=== PATIENT | female | born 1955 | race Caucasian/White ===

== ENCOUNTER 2017-09-14 17:46 | Emergency (ER) | payer MEDICARE, MEDICAID ==
[~2017-09-14] VITALS: Ht 160 cm; Wt 50.0 kg
[~2017-09-14 17:46] MED LIST: ALPR1TAB PO; AMLO5TAB4 PO; ASPI-515 PO; CALC-141 PO; CARVEDILOL PO; CLON0.5T PO; DRON5CAP PO; ELAVIL PO; FENT1PAT77 EXT; FIORICET PO; FLUO40CA9 PO; FURO-93 PO; HYDR12.58 PO; MULT-516 PO; OMEP40CA6 PO; ONDA4TAB10 PO; OXYC-307 PO; OXYC5TAB2 PO; PENT100C2; POTA10TA PO; PRAV10TA2 PO; TIZA2CAP2 PO; ZANAFLEX PO
[2017-09-14 18:15] LABS: BASOPHILS # (AUTO) 0.03 x10^3/uL (0-0.1); BASOPHILS % (AUTO) 0 % (0-1); EOSINOPHILS # (AUTO) 0.04 x10^3/uL (0-0.4); EOSINOPHILS % (AUTO) 1 % (1-7); LYMPHOCYTES # (AUTO) 1.43 x10^3/uL (1-3.4); LYMPHOCYTES % (AUTO) 17 % (22-44); MD NO; MEAN CORPUSCULAR HEMOGLOBIN 28.3 pg (27.0-34.8); MEAN CORPUSCULAR HGB CONC 32.7 g/dL (32.4-35.8); MEAN CORPUSCULAR VOLUME 86.7 fL (80-100); MEAN PLATELET VOLUME 6.1 fL (7.4-10.4); MONOCYTES # (AUTO) 0.84 x10^3/uL (0.2-0.8); MONOCYTES % (AUTO) 10 % (2-9); NEUTROPHILS % (AUTO) 72 % (42-75); PLATELET COUNT 502 x10^3/uL (130-400); RED BLOOD COUNT 3.77 x10^6/uL (3.82-5.3); RED CELL DISTRIBUTION WIDTH 19.8 % (9.6-15.2)
[2017-09-14] MEDS ORDERED: ALBUTEROL SULFATE 2.5 MG/3 ML ONE (18:20)
[2017-09-14 18:27] LABS: ALBUMIN 2.7 g/dL (3.4-5.0); ANION GAP 8 mmol/L (5-15); CALCIUM 8.2 mg/dL (8.5-10.1); CHLORIDE 99 mmol/L (98-107); CREATININE 0.38 mg/dL (0.55-1.02)
[2017-09-14 18:31] LABS: TROPONIN I < 0.015 ng/mL (0.000-0.045)
[2017-09-14] MEDS ORDERED: FURO20TA3 PO (18:38)
[2017-09-14] MEDS ORDERED: SPIR25TA3 PO (18:38)
[2017-09-14] MEDS ORDERED: METH-356 PO (18:38)
[2017-09-14] MEDS ORDERED: POTA20TA14 PO (18:38)
[2017-09-14] MEDS ORDERED: SULF1TAB24 PO (18:41)
[2017-09-14 19:30] VITALS: BP 118/82
== END 2017-09-14 19:52 | disposition home or self-care (01) ==
LOC: ED 19:01
DX: J44.1 Chronic obstructive pulmonary disease with (acute) exacerbation (principal); I25.2 Old myocardial infarction; G89.29 Other chronic pain; Z90.49 Acquired absence of other specified parts of digestive tract; F17.200 Nicotine dependence, unspecified, uncomplicated; Z98.1 Arthrodesis status
CPT/HCPCS: 36415; 71045; 80048; 82040; 83880; 84484; 85025; 93005; 99285

== ENCOUNTER 2018-01-08 18:55 | Emergency (ER) | payer MEDICARE, MEDICAID ==
[~2018-01-08] VITALS: Ht 160 cm; Wt 50.0 kg
[~2018-01-08 18:55] MED LIST changes: +ALPR0.254 PO; +ALPR1TAB6 PO; +BISA10SU65 PR; +FURO20TA3 PO; +IBUP-1484 PO; +METH-356 PO; +ONDA8TAB16 SL; +POLY17PO5 PO; +POTA20TA14 PO; +SENN1TAB7 PO; +SPIR25TA3 PO; +SPIR50TA2 PO; +SULF1TAB24 PO; +TIZA4TAB PO
[2018-01-08 19:00] VITALS: BP 136/81
[2018-01-08] MEDS ORDERED: ASPIRIN 81 MG TABLET CHEW PO ONE (19:30)
[2018-01-08] MEDS ORDERED: SODIUM CHLORIDE FLUSH 10ML SYR IVF ONE (19:30)
[2018-01-08 19:58] LABS: BASOPHILS # (AUTO) 0.04 x10^3/uL (0-0.1); BASOPHILS % (AUTO) 0 % (0-1); EOSINOPHILS # (AUTO) 0.11 x10^3/uL (0-0.4); EOSINOPHILS % (AUTO) 1 % (1-7); LYMPHOCYTES # (AUTO) 1.31 x10^3/uL (1-3.4); LYMPHOCYTES % (AUTO) 7 % (22-44); MD NO; MEAN CORPUSCULAR HEMOGLOBIN 30.2 pg (27.0-34.8); MEAN CORPUSCULAR HGB CONC 32.9 g/dL (32.4-35.8); MEAN CORPUSCULAR VOLUME 91.9 fL (80-100); MEAN PLATELET VOLUME 6.4 fL (7.4-10.4); MONOCYTES # (AUTO) 0.83 x10^3/uL (0.2-0.8); MONOCYTES % (AUTO) 5 % (2-9); NEUTROPHILS # (AUTO) 15.72 x10^3/uL (1.8-6.8); NEUTROPHILS % (AUTO) 87 % (42-75); PLATELET COUNT 588 x10^3/uL (130-400); RED BLOOD COUNT 3.39 x10^6/uL (3.82-5.3); RED CELL DISTRIBUTION WIDTH 19.9 % (9.6-15.2)
[2018-01-08 20:10] LABS: ALANINE AMINOTRANSFERASE 53 U/L (12-78); ANION GAP 8 mmol/L (5-15); CALCIUM 8.6 mg/dL (8.5-10.1); CHLORIDE 98 mmol/L (98-107); CREATININE 0.68 mg/dL (0.55-1.02)
[2018-01-08 20:14] LABS: ALKALINE PHOSPHATASE 104 U/L (45-117); BILIRUBIN,TOTAL 0.3 mg/dL (0.2-1.0); TOTAL PROTEIN 7.7 g/dL (6.4-8.2); TROPONIN I < 0.015 ng/mL (0.000-0.045)
[2018-01-08] MEDS ORDERED: ASPIRIN 81 MG TABLET CHEW ONE (20:19)
== END 2018-01-08 21:14 | disposition home or self-care (01) ==
LOC: ED 20:42
DX: R07.89 Other chest pain (principal); J44.9 Chronic obstructive pulmonary disease, unspecified; I25.2 Old myocardial infarction; I10 Essential (primary) hypertension
CPT/HCPCS: 36415; 71045; 80053; 84484; 85025; 93005; 99285